=== PATIENT | female | born 1995 | race Caucasian/White ===

== ENCOUNTER 2017-11-01 13:05 | Emergency (ER) | payer BC, OTHER ==
[2017-11-01 14:12] LABS: ABS Basophils 0.1 10^3/ul (0-0.2); ABS Eosinophils 0.2 10^3/ul (0-0.6); ABS Lymphocytes 2.3 10^3/ul (1.0-4.8); ABS Monocytes 0.9 10^3/ul (0-0.8); ABS Neutrophils 3.8 10^3/ul (1.5-7.7); ABS Nucleated RBC 0 10^3/ul; Eosinophil % 2.8 % (0-6); Hematocrit 43 % (35-47); Hemoglobin 14.7 g/dl (12.0-16.0); Lymphocyte % 31.4 % (25-47); Mean Corpuscular HGB Conc 34 g/dl (31-36); Mean Corpuscular Hemoglobin 29 pg (27-31); Mean Corpuscular Volume 85 fL (80-97); Mean Platelet Volume 8.7 um3 (7.4-10.4); Nucleated Red Blood Cells % 0; Platelet Count 263 10^3/ul (150-450); Red Blood Count 5.09 10^6/ul (4.0-5.4); Red Cell Distribution Width 14 % (10.5-15); White Blood Count 7.3 10^3/ul (3.5-10.8)
--- OUTSIDE RECORDS SUMMARY | 2017-11-01 14:26 | XMS REPORT ---
:1995 External Reference #:[id number] Author Organization [facility] Address [address] [address] Phone [phone] Care Team Providers Name Role Phone Yodit Marie MD Care Team Information [employer] Assistant Unavailable Payers Type Date Identification Payment Subscriber Numbers Provider Health Maintenance Effective: Policy Number: BCBS Ppo Neeta Ortiz [facility] ([facility]) 10/13/2017 [id number] PayID: [id number] [address] [address] [place] [address] Workers Compensation Onset: 06/12/2016 Policy Number: State Nikkie Andrew [id number] [facility] Number: [id number] [address] [address] PayID: [id number] [place] [address] Workers Compensation Onset: 11/10/2016 Policy Number: Freddie Ortiz [id number] PayID: [id number] [address] [place] [address] Problems Date Description Provider Status Onset: 02/18/2017 Adjustment disorder with depressed mood Yodit Marie MD Active Onset: 02/18/2017 Migraine with typical aura Yodit Marie MD Active Family History Date Family Member(s) Problem(s) Comments Father Cancer, Colon at age 48 Onset: (age 43 Years) Mother Drug Addiction of overdose in 2011 Social History Type Date Description Comments Education Hightest level completed, 1 year goes to [employer] to study of college criminal justice Marital Status Single Lives With Boyfriend 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 Escitalopram 01/12 Active Tablets 20mg 90tab 1 by mouth G44.52 Federico Marie s every day MD Yodit Aleve Active Capsules 220mg 1 by mouth Unknown /0000 q12 hours as needed for pain Depo-Provera 11/19 Hx Suspension 150mg/ml 1ml 150 mg Im Z11.3 q 3 mos MD Yodit - 08/30 Sumatriptan 09/11 Hx Tablets 50mg 14tab 1 by mouth G43.109 Eriberto Marie s at onset MD Yodit - of 11/19 migraine - November repeat in 2 hours. Clotrimazole/Beta 09/11 Hx Cream 1-0.05% 15gm apply L20.9 Frank methasone twice a MD Yodit Dipropionate - day to 08/30 wrists x weeks. Zofran 06/19 Hx Tablets 4mg 30tab 1 tablet s q6 hours MD Yodit - as needed 08/10 nausea Meloxicam 06/19 Hx Tablets 15mg 30tab 1 tab by M25.511 Frank s mouth MD Yodit - daily for 08/10 pain for 1-2 weeks, then daily as needed for pain Escitalopram 12/27 Hx Tablets 10mg 30tab 1 by mouth G44.52 Federico Marie s every day MD Yodit - 01/12 Depo-Provera Hx Suspension 150mg/ml 150mg Unknown /0000 intramuscu - lar every 11/19 3 Immunizations CPT Code Status Date Vaccine Lot # [id number] Given 10/02/2017 Afluria Or Fluvirin Flu Vac Intramuscular Vital Signs Date Vital Result Comment 10/17/2017 Body Temperature 97.8 F Weight 249.00 lb Heart Rate 80 /min BP Systolic 110 mmHg BP Diastolic 70 mmHg Respiratory Rate 18 /min Height 64.50 inches 5'4.50" 10/17/17 BMI (Body Mass Index) 42.1 kg/m2 08/30/2017 Weight 251.00 lb Heart Rate 80 /min BP Systolic 126 mmHg BP Diastolic 78 mmHg Respiratory Rate 18 /min Height 64.50 inches 5'4.50" 08/10/16 BMI (Body Mass Index) 42.4 kg/m2 05/28/2017 Weight 239.00 lb Heart Rate 76 /min BP Systolic 112 mmHg BP Diastolic 80 mmHg Respiratory Rate 18 /min Height 64.50 inches 5'4.50" 08/10/16 BMI (Body Mass Index) 40.4 kg/m2 02/18/2017 Weight 236.00 lb Heart Rate 76 /min BP Systolic 122 mmHg BP Diastolic 70 mmHg Respiratory Rate 18 /min Height 64.50 inches 5'4.50" 08/10/16 BMI (Body Mass Index) 39.9 kg/m2 11/19/2016 Weight 238.00 lb Heart Rate 80 /min BP Systolic 122 mmHg BP Diastolic 80 mmHg Respiratory Rate 18 /min Height 64.50 inches 5'4.50" 08/10/16 BMI (Body Mass Index) 40.2 kg/m2 11/15/2016 Weight 238.00 lb Heart Rate 62 /min BP Systolic 122 mmHg BP Diastolic 70 mmHg Respiratory Rate 18 /min Height 64.50 inches 5'4.50" 08/10/16 BMI (Body Mass Index) 40.2 kg/m2 10/24/2016 Weight 232.00 lb Heart Rate 72 /min BP Systolic 110 mmHg BP Diastolic 68 mmHg Respiratory Rate 18 /min Height 64.50 inches 5'4.50" 08/10/16 BMI (Body Mass Index) 39.2 kg/m2 09/11/2016 Weight 232.00 lb Heart Rate 72 /min BP Systolic 130 mmHg BP Diastolic 70 mmHg Respiratory Rate 18 /min Height 64.50 inches 5'4.50" 08/10/16 BMI (Body Mass Index) 39.2 kg/m2 08/17/2016 Weight 234.00 lb Heart Rate 72 /min BP Systolic 114 mmHg BP Diastolic 74 mmHg Respiratory Rate 18 /min Height 64.50 inches 5'4.50" 08/10/16 BMI (Body Mass Index) 39.5 kg/m2 08/10/2016 Body Temperature 98.7 F Weight 230.00 lb Heart Rate 84 /min BP Systolic 124 mmHg BP Diastolic 70 mmHg Respiratory Rate 19 /min Height 64.50 inches 5'4.50" 08/10/16 BMI (Body Mass Index) 38.9 kg/m2 07/03/2016 Weight 236.00 lb Heart Rate 76 /min BP Systolic 126 mmHg BP Diastolic 70 mmHg Respiratory Rate 17 /min Height 64.50 inches 5'4.50" 12/28/15 BMI (Body Mass Index) 39.9 kg/m2 06/19/2016 Weight 235.00 lb Heart Rate 76 /min BP Systolic 130 mmHg BP Diastolic 70 mmHg Respiratory Rate 18 /min Height 64.50 inches 5'4.50" 12/28/15 BMI (Body Mass Index) 39.7 kg/m2 04/23/2016 Weight 230.00 lb Heart Rate 76 /min BP Systolic 102 mmHg BP Diastolic 80 mmHg Respiratory Rate 18 /min Height 64.50 inches 5'4.50" 12/28/15 BMI (Body Mass Index) 38.9 kg/m2 02/02/2016 Weight 226.00 lb Heart Rate 80 /min BP Systolic 110 mmHg BP Diastolic 80 mmHg Respiratory Rate 18 /min Height 64.50 inches 5'4.50" 12/28/15 BMI (Body Mass Index) 38.2 kg/m2 01/13/2016 Weight 225.00 lb Heart Rate 80 /min BP Systolic 124 mmHg BP Diastolic 74 mmHg Respiratory Rate 18 /min Height 64.50 inches 5'4.50" 12/28/15 BMI (Body Mass Index) 38.0 kg/m2 12/28/2015 Weight 229.00 lb Heart Rate 76 /min BP Systolic 122 mmHg BP Diastolic 78 mmHg Respiratory Rate 18 /min Height 64.50 inches 5'4.50" 12/28/15 BMI (Body Mass Index) 38.7 kg/m2 04/07/2013 Weight 200.00 lb Heart Rate 82 /min BP Systolic 118 mmHg BP Diastolic 80 mmHg Respiratory Rate 18 /min 07/25/2012 Weight 189.00 lb Heart Rate 80 /min BP Systolic 128 mmHg BP Diastolic 82 mmHg Respiratory Rate 18 /min Height 64 inches 5'4"/Done On 02/201206/13/2012 Body Temperature 98.9 F Weight 187.00 lb Heart Rate 80 /min BP Systolic 98 mmHg BP Diastolic 70 mmHg Respiratory Rate 18 /min 06/02/2012 Weight 189.00 lb Heart Rate 84 /min BP Systolic 130 mmHg BP Diastolic 80 mmHg Respiratory Rate 17 /min 05/23/2012 Body Temperature 98.6 F Weight 188.00 lb Heart Rate 82 /min BP Systolic 110 mmHg BP Diastolic 70 mmHg Respiratory Rate 17 /min 02/15/2012 Body Temperature 20.0 F Weight 185.00 lb Heart Rate 84 /min BP Systolic 114 mmHg BP Diastolic 70 mmHg Height 64 inches 5'4" 02/15/12 Results Test Date Test Result H/L Range Note Laboratory test finding 10/17/2017 TSH <pending> Esr <pending> CRP (C-Reactive) <pending> Laboratory test finding 01/01/2017 Urine HCG (Qualitative) NEGATIVE Negative 1, 2 GC/Chlamydia By Dna 11/19/2016 Chlamydia by Dna Probe NEGATIVE Negative Probe GC by Dna Probe NEGATIVE Negative Type And Screen 06/12/2016 Patient Blood Type A POS 3 Antibody Screen Negative Negative 3 CBS W/Automated Diff 06/12/2016 White Blood Count 9.5 K/uL 3.1-10.7 3 Red Blood Count 5.14 M/uL 3.90-5.40 3 Hemoglobin 14.8 gm/dL 11.6-15.8 3 Hematocrit 44.2 % 36.0-46.1 3 Mean Cell Volume 86.0 fl 80.9-99.0 3 Mean Corpuscular HGB 28.8 pg 25.9-32.7 3 Mean Corpuscular HGB Conc 33.5 g/dL 30.8-34.3 3 Platelet Count 299 K/uL 155-360 3 Red Cell Distri Width SD 42.4 fl 3-47 3 Red Cell Distri Width %CV 13.8 % 11.7-14.4 3 Mean Platelet Volume 10.9 fL 8.9-12.4 3 Neut% 62.1 % 40.4-72.8 3 Lymph % 25.5 % 17.0-46.1 3 [place] % 9.8 % 4.3-13.2 3 Eo% 2.1 % 0.0-6.6 3 Bas% 0.5 % 0.0-1.1 3 Neut# 5.92 K/uL 1.8-7.0 3 Lymph # 2.43 K/uL 1.8-7.0 3 [place] # 0.93 K/uL High 0.3-0.9 3 Eos # 0.20 K/uL 0.0-0.5 3 Baso # 0.05 K/uL 0.0-0.1 3 Laboratory test finding 06/12/2016 Slide Review (SEE NOTE) 3, 4 Protime 06/12/2016 Protime 13.1 seconds 12.0-14.4 3 Inr 1.0 0.9-1.1 3, 5 Laboratory test finding 06/12/2016 Lipase 110 U/L 73-393 3 HCG,Serum (Qualitative) NEGATIVE (Negative) 3 Comprehensive Metabolic Panel 06/12/2016 Glucose 91 mg/dL 74-106 3 BUN 12 mg/dL 7-18 3 Creatinine 1.0 mg/dL 0.6-1.3 3 Glom Filtration Rate, Estimate >60 mL/min >60 3 If >60 mL/min >60 3, 6 BUN/Creat 12.0 ratio 3 Sodium 142 mmol/L 136-145 3 Potassium 3.6 mmol/L 3.5-5.1 3 Chloride 111 mmol/L High 98-107 3 Carbon Dioxide 21 mmol/L 21-32 3 Anion Gap 10 mEq/L 8-16 3 Calcium 8.7 mg/dL 8.5-10.1 3 Total Protein 7.4 g/dL 6.4-8.2 3 Albumin 3.7 g/dL 3.4-5.0 3 Globulin 3.7 g/dL 1.9-4.3 3 Alb/Glob 1.0 ratio 3 Bilirubin,Total 0.9 mg/dL 0.2-1.0 3 Sgot/Ast 30 U/L 15-37 3 SGPT/Alt 34 U/L 12-78 3 Alkaline Phosphatase 83 U/L 45-117 3 Urine Culture 06/12/2016 Urine Culture URETHRAL WENDY 3 Quantity 10,000 - 50,000 <SEE NOTE> 3, 7 Urinalysis With Microscopic 06/12/2016 Urine Color DK YELLOW Yellow 3 Urine Clarity SL CLOUDY Clear 3 Urine Glucose - Dipstick NEGATIVE mg/dL Negative 3 Urine Bilirubin - Dipstick NEGATIVE Negative 3 Urine Ketone NEGATIVE mg/dL Negative 3 Urine Specific [place] 1.025 1.010-1.030 3 Urine Blood LARGE Negative 3 Urine PH 5.0 Low 6.5-7.5 3 Urine Protein - Dipstick NEGATIVE mg/dL Negative 3 Urine Urobilinogen - Dipstick 0.2 E.U./dL 0.2-1.0 3 Urine Nitrite - Dipstick NEGATIVE Negative 3 Urine Leuk Esterase NEGATIVE Negative 3 Urine RBC 2-5 rbc/hpf 0-2 3 Urine WBC 2-5 wbc/hpf 0-7 3 Urine Epithelial Cells MANY /lpf None Seen 3, 8 Urine Bacteria MODERATE None Seen 3 Source: URINE, CLEAN CAT <SEE NOTE> 3, 9 Comprehensive Metabolic (CMP) 12/28/2015 Sodium 139 mmol/L 134-142 10 Potassium 3.9 mmol/L 3.5-5.2 10 Chloride 109 mmol/L 97-109 10 Carbon Dioxide 23 Results verif <SEE NOTE> mmol/L Low 24-34 10, 11 Glucose 93 mg/dL 70-105 10 BUN 14 mg/dL 6-26 10 Creatinine 1.0 mg/dL 0.5-1.4 10 Calcium 9.4 mg/dL 8.5-10.2 10 Total Protein 6.9 g/dL 6.0-8.0 10 Albumin 4.2 g/dL 3.6-4.9 10 Globulin 2.7 g/dL 2.0-3.5 10 A/G Ratio 1.6 Ratio 1.0-2.2 10 Total Bilirubin 0.6 mg/dL 0.1-1.3 10 Alkaline Phosphatase 61 U/L 24-140 10 Alt 29 U/L 3-42 10 Ast 19 U/L 8-42 10 Anion Gap 11 mmol/L 6-14 10 Sabina Egfr >60 >60 10, 12 Non Sabina Egfr >60 >60 10, 13 Laboratory test finding 12/28/2015 TSH 2.61 uIU/mL 0.35-4.94 10 CBC With Auto Diff 12/28/2015 WBC 8.6 K/uL 4.1-11.0 10 RBC 5.06 M/uL 4.00-5.40 10 Hemoglobin 14.4 gm/dL 12.0-16.0 10 Hematocrit 43.2 % 36.0-47.0 10 MCV 85.4 fL 80.0-97.0 10 MCH 28.4 pg 27.0-32.0 10 MCHC 33.2 g/dL 32.0-36.0 10 RDW 13.6 % 11.5-14.5 10 PLT Count 316 K/ul 140-400 10 Neutrophil 62.4 % 35.0-75.0 10 Lymphocyte 26.4 % 16.0-52.0 10 Monocyte 8.1 % 2.0-10.0 10 Eosinophil 2.3 % 0.0-5.0 10 Basophil 0.8 % 0.0-4.0 10 Abs Neutrophils 5.3 K/uL 2.1-8.0 10 Abs Lymphocytes 2.3 K/uL 0.8-5.5 10 Abs Monocytes 0.7 K/uL 0.1-1.0 10 Abs Eosinophils 0.2 K/uL 0.0-0.5 10 Abs Basophils 0.1 K/uL 0.0-0.3 10 Laboratory test finding 07/25/2012 Alternaria Tenuis <0.08 Class 0 kU/L Apergillis Fumigatus <0.08 Class 0 kU/L Boris,White <0.08 Class 0 kU/L Bahia Grass <0.08 Class 0 kU/L Beef <0.08 Class 0 kU/L B[place] Grass <0.08 Class 0 kU/L Birch,White <0.08 Class 0 kU/L Bluegrass,[place] <0.08 Class 0 kU/L Cat Hair/Dander <0.08 Class 0 kU/L Norman,[place]ountain <0.08 Class 0 kU/L Chocolate/[place] F052 <0.08 Class 0 kU/L Cladosporium Herbarum <0.08 Class 0 kU/L Cockroach,Haitian <0.08 Class 0 kU/L Inchelium <0.08 Class 0 kU/L D Farinae Mite 5.53 ClassIVkU/L High D Pteronyssinus 2.80 ClassIVkU/L High 14 Dog Epithelia <0.08 Class 0 kU/L Egg (Whole) <0.08 Class 0 kU/L Elm,Haitian (White) <0.08 Class 0 kU/L Fish/Shell Mix <0.08 Class 0 kU/L Hazelnut Tree <0.08 Class 0 kU/L Davis,White <0.08 Class 0 kU/L Maple (Broadbent) <0.08 Class 0 kU/L Milk (Cow) <0.08 Class 0 kU/L Mucor Racemosus <0.08 Class 0 kU/L Mugwort <0.08 Class 0 kU/L [place],White <0.08 Class 0 kU/L Nettle <0.08 Class 0 kU/L [place],White <0.08 Class 0 kU/L Peanut <0.08 Class 0 kU/L Penicillium Not <0.08 Class 0 kU/L Pigweed,Rough <0.08 Class 0 kU/L Plantain,Uzbek <0.08 Class 0 kU/L Pork <0.08 Class 0 kU/L Ragweed,Short/ <0.08 Class 0 kU/L Sheep Chalco (DO <0.08 Class 0 kU/L Soybean <0.08 Class 0 kU/L Stemphylium Bot <0.08 Class 0 kU/L Wheat <0.08 Class 0 kU/L mRast Class (Text Only) See Note 15 1 11:30 12/27/16 [id number] 2 FIRST MORNING SPECIMENS GENERALLY CONTAIN THE HIGHEST CONCENTRATION OF HCG AND ARE RECOMMENDED FOR EARLY DETECTION OF . Method: [employer] QuickVue One-Step Immunoassay 3 2X MVA ROLLOVER. 4 Instrument flagged sample for slide review. Less than 10% Bands seen, no other immature WBC's seen. RBC morphology essentially normal. Platelet estimate=NORMAL 5 THERAPEUTIC INR RANGE: 2.0 - 3.0 DVT, Pulmonary embolus, prophylaxis against venous thrombosis or systemic embolization in high risk patients. 2.5 - 3.5 Mechanical heart valves 6 Note: Persistent reduction for 3 months or more in an eGFR <60 mL/min/1.73 m2 defines CKD. Patients with eGFR values >/=60 mL/min/1.73 m2 may also have CKD if evidence of persistent proteinuria is present. The original MDRD equation for estimated GFR is not valid for patients less than 18 years of age. Additional information may be found at www.kdoqi.org. 7 10,000 - 50,000 CFU/mL 8 POSSIBLE UROGENITAL CONTAMINATION. 9 URINE, CLEAN CATCH 10 today 11 23 Results verified by repeat analysis 12 Concerning GFR Guidelines for Americans: Normal function or mild renal disease, if clinically at risk: >/=60 mL/min Moderately decreased: 30-59 Severely decreased: 15-29 Renal failure: <15 13 Concerning GFR Guidelines: Normal function or mild renal disease, if clinically at risk: >/=60 mL/min Moderately decreased: 30-59 Severely decreased: 15-29 Renal failure: <15 Glomerular Filtration Rate (GFR) is estimated based on the MDRD equation, which assumes a steady state for creatinine as recommended by the National Kidney Disease Education Program in conjunction with the National Institutes of Health and the National Kidney Foundation. Clinical conditions in which it may be necessary to measure GFR by using clearance methods include extremes of age and body size, severe malnutrition or obesity, diseases of skeletal muscle, paraplegia or quadriplegia, vegetarian diet, rapidly changing kidney function, and calculation of the dose of potentially toxic drugs that are excreted by the kidneys. 14 Test(s) 948279-E921-HgH Hazelnut Tree; 213009- V117-AoF Davis, White; 742703-N702-UaB White [place]; 709135-M717-LxY Pigweed, Rough; 981101- W018- IgE Sheep Chalco(Dock); 657770-R772-YyH Nettle; 459011-D289-YzH Beef; 444699-RA62 -IgE Fish/Shell Mix; 566655-V155-VjA Egg, Whole; 645766-Z159-DiK Chocolate/[place] were developed and had performance characteristics determined by [employer]. These tests have not been cleared or approved by the U.S. Food and Drug Administration. The FDA has determined that such clearance or approval is not necessary. These tests are used for clinical purposes. These should not be regarded as investigational or for research. Performed at: [address] [id number] [employer] Machine Operator: Srinivas Hooks MD, Phone: [phone] Levels of Specific IgE Class Description of Class -- ----- <0.08 0 Negative 0.08 - 0.15 I 0.16 - 0.50 II Increasing 0.51 - 2.50 III levels 2.51 - 12.50 IV of 12.51 - 62.50 V Specific IgE 62.51 - >100.00 Antibody Procedures Date CPT Code Description Status 09/03/2017 38763 Admin Of Inj (Therapeutic Phrophylactic Or Diagnostic Completed Subq Inj 08/30/2017 77315 Measure Blood Oxygen Level Single Determination Completed 05/14/2017 12109 Admin Of Inj (Therapeutic Phrophylactic Or Diagnostic Completed Subq Inj 05/13/2017 46262 Admin Of Inj (Therapeutic Phrophylactic Or Diagnostic Completed Subq Inj 02/14/2017 33691 Admin Of Inj (Therapeutic Phrophylactic Or Diagnostic Completed Subq Inj 11/15/2016 92779 X-Ray Foot Complete Completed Encounters Type Date Location Provider CPT E/M Dx Office Visit 08/30/2017 3:45p [facility] [place] [address] G43.109 F43.21 N91.1 Z30.42 Z32.02 Office Visit 05/28/2017 3:45p [facility] [place] [address] G43.109 F43.21 Office Visit 02/18/2017 3:00p [facility] [place] [address] G43.109 F43.21 Office Visit 11/19/2016 3:30p [facility] [place] [address] G43.109 F43.21 Z11.3 Office Visit 11/15/2016 1:00p [facility] [place] [address] M79.671 M79.671 Office Visit 10/24/2016 3:15p [facility] [place] [address] M25.511 Office Visit 09/11/2016 3:30p [facility] [place] [address] G43.109 L20.9 Office Visit 08/17/2016 4:00p [facility] [place] [address] F43.21 G44.52 Office Visit 08/10/2016 10:15a [facility] [place] [address] R05 Office Visit 04/23/2016 9:45a [facility] [place] [address] F43.21 G44.52 J06.9 Office Visit 02/02/2016 10:15a [facility] [place] [address] F43.21 G44.52 Office Visit 01/13/2016 10:00a [facility] [place] [address] F43.21 G44.52 Office Visit 12/28/2015 9:30a [facility] [place] [address] G44.52 Z80.0 F43.21 Plan of Care Future Appointment(s):11/21/2017 10:30 am - Schedule, Nurses at [facility]12/12/2017 9 :45 am - Yodit Marie MD at [facility]10/17/2017 - Yodit Marie MDR19.7 Diarrhea , unspecifiedNew Labs:Stool PanelComments:Diarrhea - diarrhea persists more than 1 week. check labs and stool studies. explained no antibiotics until we identify the causative agent as treating empirically with antibiotics can result is worsening of symptoms and serious complications. ok to use pepto - no immodium. if patient becomes more ill go to er as this can result in dehydration - drink lots of fluids.Z68.41 Body mass index (BMI) 40.0-44.9, adultComments:the BMI is the ratio between height and weight. goal for a person under age 65 is between 18.5 and25. You are overweight. Work on healthy lifestyle, with regular exercise (20 min daily will help) and eat a healthy diet. formal diet plans work best.
[2017-11-01 14:30] LABS: EGFR Non-African American 75.6 (>60)
[2017-11-01 15:09] VITALS: BP 133/88
--- NOTE | 2017-11-04 07:32 | ED ---
Nausea/Vomiting/Diarrhea HPI - HPI Summary HPI Summary: Patient is a 22-year-old female presenting to the ED with the chief complaint of nausea and diarrhea which has been present 3 weeks. She has had some relief and episodes have been intermittent. Denies any vomiting, but states she has been feeling as if she were about to vomit. Denies any melena. Diarrhea is loose, not watery, non-malodorous or have a specific color to it. Denies any fevers, sweats, chills. She denies any camping or travel. She has never these episodes before. She has never been diagnosed with a colitis or any other gastrointestinal pathology. She is been feeling otherwise well and has been going to work and school regularly. - History of Current Complaint Chief Complaint: EDAbdPain Stated Complaint: ABD PAIN Time Seen by Provider: 11/01/17 13:58 Hx Obtained From: Patient Hx Last Menstrual Period: 2 + years ago ?: No Onset/Duration: Sudden Onset Timing: Constant Severity Initially: Mild Severity Currently: Mild Pain Intensity: 3 Pain Scale Used: 0-10 Numeric Location: Diffuse Nausea/Vomiting Presence: None Nausea/Vomiting Duration: 0-12 hours Diarrhea Presence: Yes Diarrhea Frequency: Every 3-4 hours Diarrhea Duration: 0-12 hours - Risk Factors Influenza Risk Factors: Negative Surgical Obstruction Risk Factor(s): Negative - Allergies/Home Medications Allergies/Adverse Reactions: Allergies Allergy/AdvReac Type Severity Reaction Status Date / Time egg Allergy Rash Verified 11/01/17 13:13 Home Medications: Home Medications Escitalopram (NF) [Lexapro 20 mg (NF)] 20 mg PO DAILY 11/01/17 [History Confirmed 11/01/17] SUMAtriptan TAB* [Imitrex TAB*] 50 mg PO DAILY PRN 11/01/17 [History Confirmed 11/01/17] PMH/Surg Hx/FS Hx/Imm Hx Previously Healthy: Yes - Surgical History Surgery Procedure, Year, and Place: 01/31/17 RIGHT SHOULDER - Immunization History Hx Pertussis Vaccination: No Immunizations Up to Date: Unable to Obtain/Confirm Infectious Disease History: No Infectious Disease History: Denies: Traveled Outside the [place] in Last 30 Days - Family History Known Family History: Positive: None - Social History Occupation: Unemployed Lives: With Family Alcohol Use: None Hx Substance Use: No Substance Use Type: Reports: None Hx Tobacco Use: No Smoking Status (MU): Never Smoked Tobacco Review of Systems Constitutional: Negative Negative: Fever, Chills, Fatigue, Skin Diaphoresis Negative: Photophobia, Blurred Vision Cardiovascular: Negative Respiratory: Negative Positive: Diarrhea, Nausea. Negative: Abdominal Pain, Vomiting Genitourinary: Negative Positive: no symptoms reported, see HPI Skin: Negative Psychological: Normal All Other Systems Reviewed And Are Negative: Yes Physical Exam Triage Information Reviewed: Yes Vital Signs On Initial Exam: Initial Vitals Temp Pulse Resp BP Pulse Ox 97.0 F 81 16 147/79 99 11/01/17 13:13 11/01/17 13:13 11/01/17 13:13 11/01/17 13:13 11/01/17 13:13 Vital Signs Reviewed: Yes Appearance: Positive: Well-Appearing, Well-Nourished Skin: Positive: Warm, Skin Color Reflects Adequate Perfusion Head/Face: Positive: Normal Head/Face Inspection Eyes: Positive: EOMI, IVONE, Conjunctiva Clear Neck: Positive: Supple Respiratory/Lung Sounds: Positive: Clear to Auscultation, Breath Sounds Present Cardiovascular: Positive: RRR, Pulses are Symmetrical in both Upper and Lower Extremities Abdomen Description: Positive: Nontender, No Organomegaly, Bruit. Negative: CVA Tenderness (R), CVA Tenderness (L), McBurney's Point Tenderness Musculoskeletal: Positive: Normal, Strength/ROM Intact Neurological: Positive: Sensory/Motor Intact, Alert, Oriented to Person Place, Time, Speech Normal Psychiatric: Positive: Normal, Affect/Mood Appropriate AVPU Assessment: Alert Diagnostics - Vital Signs Vital Signs Temp Pulse Resp BP Pulse Ox 11/01/17 15:08 97.0 F 68 16 133/88 98 11/01/17 14:21 68 97 11/01/17 14:17 79 137/104 99 11/01/17 13:13 97.0 F 81 16 147/79 99 - Laboratory Lab Results: Lab Results 11/01/17 11/01/17 11/01/17 Range/Units 14:05 14:05 14:05 WBC 7.3 (3.5-10.8) 10^3/ul RBC 5.09 (4.0-5.4) 10^6/ul Hgb 14.7 (12.0-16.0) g/dl Hct 43 (35-47) % MCV 85 (80-97) fL MCH 29 (27-31) pg MCHC 34 (31-36) g/dl RDW 14 (10.5-15) % Plt Count 263 (150-450) 10^3/ul MPV 8.7 (7.4-10.4) um3 Neut % (Auto) 51.8 (38-83) % Lymph % (Auto) 31.4 (25-47) % Ramsey % (Auto) 13.0 H (0-7) % Eos % (Auto) 2.8 (0-6) % Baso % (Auto) 1.0 (0-2) % Absolute Neuts (auto) 3.8 (1.5-7.7) 10^3/ul Absolute Lymphs (auto) 2.3 (1.0-4.8) 10^3/ul Absolute Monos (auto) 0.9 H (0-0.8) 10^3/ul Absolute Eos (auto) 0.2 (0-0.6) 10^3/ul Absolute Basos (auto) 0.1 (0-0.2) 10^3/ul Absolute Nucleated RBC 0 10^3/ul Nucleated RBC % 0 Sodium 139 (139-145) mmol/L Potassium 3.8 (3.5-5.0) mmol/L Chloride 107 (101-111) mmol/L Carbon Dioxide 26 (22-32) mmol/L Anion Gap 6 (2-11) mmol/L BUN 17 (6-24) mg/dL Creatinine 0.92 (0.51-0.95) mg/dL Est GFR ( Amer) 97.3 (>60) Est GFR (Non-Af Amer) 75.6 (>60) BUN/Creatinine Ratio 18.5 (8-20) Glucose 77 (70-100) mg/dL Lactic Acid 0.7 (0.5-2.0) mmol/L Calcium 9.4 (8.6-10.3) mg/dL Magnesium 2.0 (1.9-2.7) mg/dL Total Bilirubin 0.50 (0.2-1.0) mg/dL AST 18 (13-39) U/L ALT 16 (7-52) U/L Alkaline Phosphatase 77 (34-104) U/L C-Reactive Protein 3.14 (< 5.00) mg/L Total Protein 7.2 (6.4-8.9) g/dL Albumin 4.4 (3.2-5.2) g/dL Globulin 2.8 (2-4) g/dL Albumin/Globulin Ratio 1.6 (1-3) Lipase 19 (11.0-82.0) U/L Beta HCG, Quant < 0.60 mIU/mL Result Diagrams: 11/01/17 14:05 11/01/17 14:05 Lab Statement: Any lab studies that have been ordered have been reviewed, and results considered in the medical decision making process. Naus/Vom/Diarrhea Course/Dx - Course Course Of Treatment: Patient is evaluated for nausea and diarrhea. Diarrhea is non-malodorous and without color. Zofran with effect. She was unable to give a stool sample while in the ED. Labs obtained and are unremarkable. I have advised her to follow-up with her PCP. Since she is improving she will be discharged home at this time and understands return precautions. She continues to deny any abdominal pain. - Differential Dx/Diagnosis Differential Diagnoses - Female: Dehydration Provider Diagnoses: Diarrhea Is Visit Related: No Condition At Discharge: Stable Discharge - Sign-Out/Discharge Documenting (check all that apply): Discharge - Discharge Plan Condition: Stable Disposition: HOME Prescriptions: Ondansetron ODT TAB* [Zofran 4 MG Odt TAB*] 4 mg PO Q6H PRN #12 tab.odt PRN Reason: Nausea Patient Education Materials: Dehydration (ED), Acute Diarrhea (ED) Referrals: Yodit Marie MD [Primary Care Provider] - Kong Naranjo MD [Medical Doctor] - Additional Instructions: Please follow-up with Dr. Naranjo Do not use any antidiarrheals Follow back up with your PCP as well If he develop any malodorous, or range or yellow stool, return to the ED Drink plenty of fluids and include Gatorade - Billing Disposition and Condition Condition: STABLE Disposition: HOME
== END 2017-11-01 15:08 | disposition home or self-care (01) ==
LOC: ED 13:05
DX: R11.0 Nausea (principal); R19.7 Diarrhea, unspecified
CPT/HCPCS: 36415; 80053; 83605; 83690; 83735; 84702; 85025; 86140; 99282

== ENCOUNTER 2018-01-18 19:45 | Emergency (ER) | payer SELFPAY ==
[2018-01-18 19:53] VITALS: BP 126/69
--- NOTE | 2018-01-18 20:06 | UC ---
Cardiac HPI - HPI Summary HPI Summary: Woke up this morning with chest pain. Pressure, heaviness with shortness of breath. No nausea/ diaphoresis. Worse with deep breaths or bending over. - History of Current Complaint Chief Complaint: UCChestPain Stated Complaint: CHEST PAIN,SOB Hx Obtained From: Patient Hx Last Menstrual Period: On depo inj Onset/Duration: Sudden Onset, Lasting Hours - 12, Worse Since - onset Timing: Constant Initial Severity: Moderate Current Severity: Severe Pain Intensity: 7 Chest Pain Location: Mid Sternal Character: Heaviness Aggravating Factor(s): Movement, Deep Breaths Alleviating Factor(s): Rest, Position Associated Signs & Symptoms: Positive: Chest Pain, SOB - Risk Factors Pulmonary Embolism Risk Factors: Negative Cardiac Risk Factors: Negative - Allergy/Home Medications Allergies/Adverse Reactions: Allergies Allergy/AdvReac Type Severity Reaction Status Date / Time egg Allergy Rash Verified 01/18/18 19:47 PMH/Surg Hx/FS Hx/Imm Hx Previously Healthy: Yes - Surgical History Surgical History: Yes Surgery Procedure, Year, and Place: 01/31/17 RIGHT SHOULDER - Family History Known Family History: Positive: Hypertension, Diabetes Negative: Cardiac Disease - Social History Occupation: Unemployed Lives: Alone Alcohol Use: Occasionally Substance Use Type: None Smoking Status (MU): Never Smoked Tobacco - Immunization History Most Recent Influenza Vaccination: Not the Season Review of Systems Respiratory: Shortness Of Breath Cardiovascular: Chest Pain Is Patient Immunocompromised?: No All Other Systems Reviewed And Are Negative: Yes Physical Exam Triage Information Reviewed: Yes Appearance: Well-Appearing, Pain Distress - some splinting of respirations., Obese Vital Signs: Initial Vital Signs Temp 98.7 F 01/18/18 19:46 Pulse 108 01/18/18 19:46 Resp 18 01/18/18 19:46 BP 126/69 01/18/18 19:46 Pulse Ox 100 01/18/18 19:46 Vital Signs Reviewed: Yes Eyes: Positive: Conjunctiva Clear ENT: Positive: Pharynx normal, Nasal congestion - with allergic changes., TMs normal Dental Exam: Normal Neck: Positive: Tenderness @ - right submandibular/ submental region. Respiratory: Positive: Lungs clear, Wheezing - expiratory with coughing Cardiovascular Exam: Normal Abdomen Description: Negative: Nontender - mild left lower quadrant tenderness, Hepatomegaly, McBurney's Point Tenderness, Peritoneal Signs Musculoskeletal Exam: Normal, Other - Negative homans. Musculoskeletal: Positive: No Edema Neurological Exam: Normal Psychological Exam: Normal - Maybe slightly anxious Skin Exam: Normal Diagnostics - Radiology No standard instances Xray Interpretation: No Acute Changes Radiology Interpretation Completed By: ED Physician, Radiologist - Differential Diagnoses - Chest Pain Differential Diagnosis/HQI/PQRI: Acute [place], Angina, Chest Wall, Lower Respiratory Infection, Pulmonary Embolism - Clinical Impression Provider Diagnoses: Costochondritis. Chest wall pain. Discharge - Sign-Out/Discharge Documenting (check all that apply): Discharge/Admit/Transfer - Discharge Plan Condition: Stable Disposition: HOME Prescriptions: Naproxen [Naproxen 500 mg tab] 500 mg PO BID PRN #60 tablet.dr PRN Reason: Pain - Chest predniSONE TAB* [Deltasone 20 MG TAB*] 20 mg PO DAILY #18 tab Patient Education Materials: Costochondritis (ED), Prednisone (By mouth), Naproxen (By mouth) Referrals: Yodit Marie MD [Primary Care Provider] - Additional Instructions: If the pain is a lot worse, go to the ER. - Billing Disposition and Condition Condition: STABLE Disposition: Home
[2018-01-18] MEDS ORDERED: Ketorolac INJ* 60 MG/2 ML VIAL IM ONE (20:08)
[2018-01-18] MEDS ORDERED: Albuterol 2.5 MG/3 ML NEB.SOL* (0.083%) INH ONE (20:09)
--- NOTE | 2018-01-18 20:32 | RAD ---
INDICATION: Chest wall pain and shortness of breath. COMPARISON: Comparison is made with a prior study from November 02, 2015. TECHNIQUE: Dual-energy PA and lateral views of the chest were obtained. FINDINGS: The heart is within normal limits in size. Mediastinal and hilar contours appear within normal limits. The lungs are underinflated and clear. No pleural effusion or pneumothorax is seen. IMPRESSION: NO EVIDENCE FOR ACTIVE CARDIOPULMONARY DISEASE.
[2018-01-18] MEDS ORDERED: predniSONE TAB* 20 MG PO ONE (20:49)
--- OUTSIDE RECORDS SUMMARY | 2018-01-18 21:03 | XMS REPORT ---
:1995 External Reference #:[id number] Author Organization [facility] Address [address], [address] [place] [address] Phone [phone] Care Team Providers Name Role Phone Lily Seo FNP Care Team Information Nurse Coordinator Unavailable Lily Seo FNP Primary Care Physician Unavailable Payers Type Date Identification Numbers Payment Provider Subscriber Commercial Policy Number: [id number] Pk Ortiz PayID: [id number] [address] [address] [place] [address] Workers Compensation Onset: 2017 Policy Number: Freddie Ortiz [id number] PayID: [id number] [address] [place] [address] Workers Compensation Onset: 2016 Policy Number: State Nikkie Andrew [id number] Diana Group Name: Ext [id number] [address] PayID: [id number] [place] [address] Workers Compensation Onset: 2017 Policy Number: Freddie Ortiz [id number] Group Name: [address] PayID: [id number] [place] [address] Problems Date Description Provider Status Onset: 12/12/2016 Shoulder joint pain Davin Woo M.D. Active Onset: 01/10/2017 Disorder of shoulder ADAM Ford Active Onset: 04/03/2017 Sprain of shoulder ADAM Ford Active Onset: 07/04/2017 Disorder of bursa of shoulder region ADAM Ford Active Family History Date Family Member(s) Problem(s) Comments Father due to Colon Cancer () Father Colon Cancer Mother due to Diabetes () Mother due to Hypertension () Social History Type Date Description Comments Marital Status Single Lives With Boyfriend Home Environment Lives With Boyfriend Occupation Currently Working [employer] Work Status Currently Working Cigarette Use Never Smoked Cigarettes Smokeless Tobacco Never Used Smokeless Tobacco ETOH Use Currently consumes alcohol socially 1/month Smoking Patient has never smoked Recreational Drug Use Denies Drug Use Daily Caffeine Consumes on average 3 cups of regular coffee per day Daily Caffeine Consumes on average 24oz of soda per day Allergies, Adverse Reactions, Alerts Date Description Reaction Status Severity Comments 11/07/2016 Eggs active All egg products Medications Medication Date Status Form Strength Qnty SIG Indications Ordering Provider Citroma 11/26 Active Solution 1.745GM/3 296ml drink 1 R19. 0ML bottle at [facility] 12pMD jeremy (noon)the day before the procedure Dulcolax 11/[address] 5mg 4tabs 4 tablets R1. taken a [facility] Eduardo 8pm MD anoop day before the procedure Golytely 11/26 Active Solution 236gm 4000m drink half R103.21 Rec l the [facility] evening MD before and half the morning of the procedure (1 cup every 10') Medroxyprogestero Active Suspension 150mg/ml inject Unknown ne Acetate /0000 150mg intramuscu larly every 3 months Sumatriptan Active Tablets 50mg Take 1 Unknown Succinate /0000 Tablet By Mouth AT Onset Of Migraine May Repeat In 2 Hours Escitalopram Active Tablets 20mg Take One Unknown Oxalate /0000 Tablet By Mouth Every Day Aleve Active Capsules 220mg 1 tab by Unknown /0000 mouth as needed Valium 06/14 Hx Tablets 5mg 2tabs take 1 tab 45 min Amna, prior to M.D. exam start and may take a 2nd tablet if needed Tramadol HCL 06/13 Hx Tablets 50mg 30tab 1 by mouth s every 6 Amna, hour as M.D. needed pain Oxycodone HCL 12/26 Hx Tablets 10mg 40tab 1 by mouth s every 4-6 Amna, - hour as M.D. 01/30 postop pain Valium 11/27 Hx Tablets 5mg 2tabs take 1 tab 45 min Amna, - prior to M.D. 12/12 exam start and may take a 2nd tablet if needed Escitalopram Hx Tablets 20mg Take One Unknown Oxalate /0000 Tablet By - Mouth 01/30 Naproxen Sodium Hx Capsules 220mg 2 po bid Unknown /0000 - 12/12 Clotrimazole/Beta Hx Cream 1-0.05% Apply Unknown methasone /0000 Twice A Dipropionate - Day To 12/26 Wrists 2 Weeks Meloxicam Hx Tablets 15mg Take One Unknown /0000 Tablet By - Mouth 12/12 For Pain For 1 2 Weeks Then Once Da Hydrocodone-Aceta Hx Tablets 5-325mg Take One Unknown minophen /0000 Tablet By - Mouth 12/12 Every 6 Hours as Needed For Pain Maximum Ibuprofen Hx Tablets 600mg Take One Unknown /0000 Tablet By - Mouth 12/12 Times A Day Ondansetron HCL Hx Tablets 4mg Take One Unknown /0000 Tablet By - Mouth 12/12 Every Hours as Needed For Nausea Escitalopram Hx Tablets 10mg Take One Unknown Oxalate /0000 Tablet By - Mouth 12/12 Aleve / Hx Capsules 220mg 1 when Unknown /0000 needed - 12/26 Naproxen Sodium 0000 Hx Capsules 220mg 1 when Unknown /0000 needed - 01/30 Medications Administered in Office Medication Date Status Form Strength Qnty SIG Indications Ordering Provider Depomedrol 80 Administered Injection Berna mg 017 ADAM Dinero Vital Signs Date Vital Result Comment 11/26/2017 BP Systolic Sitting Right Arm 136 mmHg BP Diastolic Sitting Right Arm 88 mmHg Heart Rate 120 /min Respiratory Rate 16 /min Height 65 inches 5'5" Weight 243.00 lb BMI (Body Mass Index) 40.4 kg/m2 BSA (Body Surface Area) 2.15 m2 Tell body weight in kilograms 57 09/11/2017 BP Systolic Sitting Left Arm 120 mmHg BP Diastolic Sitting Left Arm 79 mmHg Body Temperature 98.4 F Heart Rate 74 /min Respiratory Rate 19 /min Height 65 inches 5'5" Weight 248.00 lb BMI (Body Mass Index) 41.3 kg/m2 BSA (Body Surface Area) 2.17 m2 Tell body weight in kilograms 57 08/12/2017 BP Systolic Sitting Left Arm 117 mmHg BP Diastolic Sitting Left Arm 85 mmHg Heart Rate 79 /min Height 65 inches 5'5" Weight 248.00 lb BMI (Body Mass Index) 41.3 kg/m2 BSA (Body Surface Area) 2.17 m2 Tell body weight in kilograms 57 07/26/2017 BP Systolic Sitting Left Arm 112 mmHg BP Diastolic Sitting Left Arm 77 mmHg Body Temperature 98.7 F Heart Rate 89 /min Respiratory Rate 19 /min Height 65 inches 5'5" Weight 245.00 lb BMI (Body Mass Index) 40.8 kg/m2 BSA (Body Surface Area) 2.16 m2 Tell body weight in kilograms 57 07/04/2017 BP Systolic Sitting Left Arm 117 mmHg BP Diastolic Sitting Left Arm 76 mmHg Heart Rate 83 /min Height 65 inches 5'5" Weight 244.00 lb BMI (Body Mass Index) 40.6 kg/m2 BSA (Body Surface Area) 2.15 m2 Tell body weight in kilograms 57 06/05/2017 BP Systolic 123 mmHg BP Diastolic 82 mmHg Body Temperature 98.3 F Heart Rate 86 /min Respiratory Rate 16 /min Height 65 inches 5'5" Weight 242.00 lb BMI (Body Mass Index) 40.3 kg/m2 BSA (Body Surface Area) 2.15 m2 Tell body weight in kilograms 57 12/26/2016 BP Systolic 117 mmHg BP Diastolic 78 mmHg Heart Rate 76 /min Height 64.5 inches 5'4.50" Weight 229.00 lb BMI (Body Mass Index) 38.7 kg/m2 BSA (Body Surface Area) 2.08 m2 Tell body weight in kilograms 56 11/07/2016 BP Systolic 126 mmHg BP Diastolic 72 mmHg Heart Rate 68 /min Weight 237.00 lb Results Test Date Test Result H/L Range Note Laboratory test finding 01/01/2017 Urine HCG NEGATIVE Negative 1, 2 (Qualitative) 1 11:30 12/27/16 97241,28185 2 FIRST MORNING SPECIMENS GENERALLY CONTAIN THE HIGHEST CONCENTRATION OF HCG AND ARE RECOMMENDED FOR EARLY DETECTION OF . Method: Quidel QuickVue One-Step Immunoassay Procedures Date CPT Code Description Status 07/04/2017 15627 Asp./Injection major joint Completed 06/05/2017 97674 Radiology, Shoulder: Two Views (Sso) Completed 04/03/2017 28108 Radiology, Shoulder: Two Views (Sso) Completed 01/01/2017 51672 Aromioplasty or Acromionectomy part w/wo coracoacromial Completed lig relea 01/01/2017 14752 Claviculectomy;partial open Completed Encounters Type Date Location Provider CPT E/M Dx Office Visit 11/26/2017 3:30[place] [address] R19.7 Office Visit 09/11/2017 9:30a Orthopaedic Office ADAM Ford 40443 S43.401D Office Visit 08/12/2017 1:00p Orthopaedic Office ADAM Ford 39316 S43.401D Office Visit 07/26/2017 10:30a Orthopaedic Office ADAM Ford 89223 S43.401D Office Visit 07/04/2017 2:15p Orthopaedic Office ADAM Ford 92938 S43.401D M75.51 Office Visit 06/13/2017 10:30a Orthopaedic Office ADAM Ford 06515 S43.401D M75.41 W01.0xxA Y99.0 Office Visit 06/05/2017 2:00p Orthopaedic Office Davin Woo M.D. 02459 M25.511 Office Visit 05/07/2017 3:30p Orthopaedic Office ADAM Ford 10346 M75.41 M75.41 M25.511 Office Visit 04/03/2017 1:00p Orthopaedic Office ADAM Ford 03644 S43.401A M25.511 Office Visit 12/12/2016 10:45a Orthopaedic Office Davin Woo M.D. 86749 S43.491A M25.511 Office Visit 11/07/2016 1:30p Orthopaedic Office ADAM Ford 70748 S43.491A Plan of Care 11/26/2017 - Moris Hoff, MDR19.7 Diarrhea, unspecifiedNew Medication: Citroma 1.745 GM/30MLDulcolax 5 mgGolytely 236 gmComments:diarrhea for two monthsNo travel no fever [place] [place] still pendingfather had colon cancer before 50plan - get labs colonoscopy
== END 2018-01-18 20:55 | disposition home or self-care (01) ==
LOC: UCCORT 19:45
DX: M94.0 Chondrocostal junction syndrome [Tietze] (principal); R07.89 Other chest pain
CPT/HCPCS: 71046; 93005; 96372; 99212; G0463; J1885; J7512

== ENCOUNTER 2018-03-17 14:57 | Emergency (ER) | payer SELFPAY ==
[2018-03-17 15:14] VITALS: BP 121/82
--- NOTE | 2018-03-17 15:20 | UC ---
Lower Extremity/Ankle HPI - HPI Summary HPI Summary: pain to top of L foot for about 2.5 days. no hx injury, fever or rash. on feet all day for work. - History of Current Complaint Chief Complaint: UCLowerExtremity Stated Complaint: LEFT FOOT PAIN Time Seen by Provider: 03/17/18 15:14 Hx Obtained From: Patient Hx Last Menstrual Period: depoprovera Pain Intensity: 8 Aggravating Factor(s): Ambulation Able to Bear Weight: Yes - Allergies/Home Medications Allergies/Adverse Reactions: Allergies Allergy/AdvReac Type Severity Reaction Status Date / Time egg Allergy Rash Verified 03/17/18 15:14 PMH/Surg Hx/FS Hx/Imm Hx Neurological History: Migraine Psychological History: Depression - Surgical History Surgical History: Yes Surgery Procedure, Year, and Place: 01/31/17 RIGHT SHOULDER - Family History Known Family History: Positive: None, Hypertension, Diabetes Negative: Cardiac Disease - Social History Occupation: Employed Full-time Alcohol Use: Occasionally Substance Use Type: None Smoking Status (MU): Never Smoked Tobacco - Immunization History Most Recent Influenza Vaccination: Not the Season Vaccination Up to Date: Yes Review of Systems Constitutional: Negative Skin: Negative Eyes: Negative ENT: Negative Respiratory: Negative Cardiovascular: Negative Gastrointestinal: Negative Genitourinary: Negative Motor: Negative Neurovascular: Negative Musculoskeletal: Other: - L foot pain Neurological: Negative Psychological: Negative Is Patient Immunocompromised?: No All Other Systems Reviewed And Are Negative: Yes Physical Exam Triage Information Reviewed: Yes Appearance: Well-Appearing Vital Signs: Initial Vital Signs Temp 98.8 F 03/17/18 15:07 Pulse 81 03/17/18 15:07 Resp 18 03/17/18 15:07 BP 121/82 03/17/18 15:07 Pulse Ox 100 03/17/18 15:07 Vital Signs Reviewed: Yes Eyes: Positive: Conjunctiva Clear ENT: Positive: Normal ENT inspection Neck: Positive: Supple, Nontender, No Lymphadenopathy Respiratory: Positive: Lungs clear, Normal breath sounds Cardiovascular: Positive: RRR, No Murmur Abdomen Description: Positive: Nontender, No Organomegaly, Soft Bowel Sounds: Positive: Present Musculoskeletal: Positive: Other: - LLE: hip, knee, achilles and ankle are atraumatic. L foot compared to R has no gross deformity, swelling or discoloration. Dorsal central foot is tender to palaption. Foot has full s/v/m function. Neurological: Positive: Alert Psychological: Positive: Age Appropriate Behavior Skin Exam: Normal Lower Extremity Course/Dx - Course Course Of Treatment: no fx or dislocation. no concern for infection. wiil tx with yunier and post op shoe, otc nsaid and orhto f/u. - Differential Dx/Diagnosis Provider Diagnoses: L foot strain Discharge - Sign-Out/Discharge Documenting (check all that apply): Patient Departure All imaging exams completed and their final reports reviewed: Yes - Discharge Plan Condition: Stable Disposition: HOME Patient Education Materials: Foot Sprain (ED) Referrals: Yodit Marie MD [Primary Care Provider] - 7 Days Additional Instructions: splint for comfort - Billing Disposition and Condition Condition: STABLE Disposition: Home
--- NOTE | 2018-03-17 16:05 | RAD ---
Indication: Left foot pain. 3 views of left foot demonstrates no fracture. No other bone or joint abnormality is noted. IMPRESSION: No fracture of left foot is noted.
== END 2018-03-17 16:11 | disposition home or self-care (01) ==
LOC: UCCORT 14:57
DX: S96.912A Strain of unspecified muscle and tendon at ankle and foot level, left foot, initial encounter (principal); Z91.012 Allergy to eggs; X50.9XXA Other and unspecified overexertion or strenuous movements or postures, initial encounter; Y92.9 Unspecified place or not applicable
CPT/HCPCS: 99213; G0463

== ENCOUNTER 2018-06-17 10:55 | Emergency (ER) | payer BC ==
[2018-06-17 12:02] VITALS: BP 137/81
--- NOTE | 2018-06-17 12:25 | UC ---
Throat Pain/Nasal Jeffrey HPI - HPI Summary HPI Summary: sore throat x 3 days no fever, + chills, mild cough , nasal congestion - History of Current Complaint Chief Complaint: UCGeneralIllness Stated Complaint: SORE THROAT Time Seen by Provider: 06/17/18 12:05 Hx Obtained From: Patient Hx Last Menstrual Period: unknown, depo ?: No Onset/Duration: Gradual Onset, Lasting Days - 3, Still Present Severity: Moderate Pain Intensity: 6 Cough: Nonproductive Associated Signs & Symptoms: Positive: Nasal Discharge. Negative: Dysphagia, FB Sensation, Drooling, Wheezing, Hoarseness, Sinus Discomfort, Fever, Vomiting , Rash - Allergies/Home Medications Allergies/Adverse Reactions: Allergies Allergy/AdvReac Type Severity Reaction Status Date / Time egg Allergy Rash Verified 06/17/18 12:00 Home Medications: Home Medications Acetaminophen/Diphenhydramine [Tylenol Pm Ex-Strength Caplet] 1 each PO BEDTIME 06/17/18 [History Confirmed 06/17/18] PMH/Surg Hx/FS Hx/Imm Hx Previously Healthy: Yes - Surgical History Surgical History: Yes Surgery Procedure, Year, and Place: 01/31/17 RIGHT SHOULDER - Family History Known Family History: Positive: None, Hypertension, Diabetes Negative: Cardiac Disease - Social History Alcohol Use: Rare Substance Use Type: None Smoking Status (MU): Never Smoked Tobacco - Immunization History Most Recent Influenza Vaccination: Not the Season Vaccination Up to Date: Yes Review of Systems All Other Systems Reviewed And Are Negative: Yes Constitutional: Positive: Negative Skin: Positive: Negative Eyes: Positive: Negative ENT: Positive: Sore Throat, Nasal Discharge Respiratory: Positive: Cough Cardiovascular: Positive: Negative Is Patient Immunocompromised?: No Physical Exam Triage Information Reviewed: Yes Appearance: Well-Appearing, No Pain Distress, Well-Nourished Vital Signs: Initial Vital Signs Temp 98.9 F 06/17/18 11:59 Pulse 80 06/17/18 11:59 Resp 16 06/17/18 11:59 BP 137/81 06/17/18 11:59 Pulse Ox 100 06/17/18 11:59 Vital Signs Reviewed: Yes Eye Exam: Normal Eyes: Positive: Conjunctiva Clear ENT: Positive: Normal ENT inspection, Hearing grossly normal, Pharynx normal, Nasal congestion, TMs normal. Negative: Pharyngeal erythema Neck exam: Normal Neck: Positive: Supple, Nontender, No Lymphadenopathy Respiratory: Positive: Chest non-tender, Lungs clear, Normal breath sounds Cardiovascular: Positive: RRR, No Murmur, Pulses Normal Abdominal Exam: Normal Abdomen Description: Positive: Nontender, Soft Bowel Sounds: Positive: Present Musculoskeletal Exam: Normal Neurological Exam: Normal Psychological Exam: Normal Throat Pain/Nasal Course/Dx - Differential Dx/Diagnosis Provider Diagnosis: Pharyngitis Discharge - Sign-Out/Discharge Documenting (check all that apply): Patient Departure All imaging exams completed and their final reports reviewed: No Studies - Discharge Plan Condition: Stable Disposition: HOME Patient Education Materials: Pharyngitis (ED) Referrals: No Primary Care Phys,NOPCP [Primary Care Provider] - If Needed Additional Instructions: negative rapid strep viral pharyngitis no need for antibiotics - Billing Disposition and Condition Condition: STABLE Disposition: Home
== END 2018-06-17 12:25 | disposition home or self-care (01) ==
LOC: UCCORT 10:55
DX: J02.9 Acute pharyngitis, unspecified (principal)
CPT/HCPCS: 87651; 99211; G0463

== ENCOUNTER 2018-09-26 15:12 | Emergency (ER) | payer BC ==
[2018-09-26 15:23] VITALS: BP 133/82
--- NOTE | 2018-09-26 15:32 | UC ---
Throat Pain/Nasal Jeffrey HPI - HPI Summary HPI Summary: sore throat x 1 day noted white spots on her throat, concern about strep no fever, no cough, no runny nose, no body aches - History of Current Complaint Chief Complaint: UCGeneralIllness Stated Complaint: SORE THROAT Time Seen by Provider: 09/26/18 15:27 Hx Obtained From: Patient Hx Last Menstrual Period: on Depo Provera ?: No Onset/Duration: Gradual Onset Severity: Moderate Pain Intensity: 5 Cough: None Associated Signs & Symptoms: Negative: Dysphagia, FB Sensation, Drooling, Wheezing, Hoarseness, Sinus Discomfort, Nasal Discharge, Fever, Vomiting, Rash - Allergies/Home Medications Allergies/Adverse Reactions: Allergies Allergy/AdvReac Type Severity Reaction Status Date / Time egg Allergy Rash Verified 09/26/18 15:23 Home Medications: Home Medications traZODone TAB* [Desyrel TAB*] 50 mg PO BEDTIME 09/26/18 [History Confirmed 09/26] PMH/Surg Hx/FS Hx/Imm Hx Previously Healthy: Yes - Surgical History Surgical History: Yes Surgery Procedure, Year, and Place: 01/31/17 RIGHT SHOULDER - Family History Known Family History: Positive: None, Hypertension, Diabetes Negative: Cardiac Disease - Social History Alcohol Use: Weekly Alcohol Amount: weekends Substance Use Type: None Smoking Status (MU): Never Smoked Tobacco - Immunization History Most Recent Influenza Vaccination: Not the Season Vaccination Up to Date: Yes Review of Systems All Other Systems Reviewed And Are Negative: Yes Constitutional: Positive: Negative Skin: Positive: Negative Eyes: Positive: Negative ENT: Positive: Sore Throat Respiratory: Positive: Negative Cardiovascular: Positive: Negative Gastrointestinal: Positive: Negative Is Patient Immunocompromised?: No Physical Exam Triage Information Reviewed: Yes Appearance: Well-Appearing, No Pain Distress, Well-Nourished Vital Signs: Initial Vital Signs Temp 98.4 F 09/26/18 15:21 Pulse 102 09/26/18 15:21 Resp 16 09/26/18 15:21 BP 133/82 09/26/18 15:21 Pulse Ox 98 09/26/18 15:21 Vital Signs Reviewed: Yes Eye Exam: Normal Eyes: Positive: Conjunctiva Clear ENT: Positive: Normal ENT inspection, Hearing grossly normal, Pharyngeal erythema, Tonsillar exudate Neck: Positive: Supple, Nontender, No Lymphadenopathy Respiratory: Positive: Chest non-tender, Lungs clear, Normal breath sounds Cardiovascular: Positive: No Murmur, Tachycardia Musculoskeletal Exam: Normal Skin Exam: Normal Throat Pain/Nasal Course/Dx - Differential Dx/Diagnosis Provider Diagnosis: Pharyngitis Discharge - Sign-Out/Discharge Documenting (check all that apply): Patient Departure All imaging exams completed and their final reports reviewed: No Studies - Discharge Plan Condition: Stable Disposition: HOME Patient Education Materials: Pharyngitis (ED) Referrals: Dolores Bailon MD [Primary Care Provider] - If Needed Additional Instructions: negative rapid strep viral pharyngitis follow up as needed - Billing Disposition and Condition Condition: STABLE Disposition: Home
== END 2018-09-26 15:48 | disposition home or self-care (01) ==
LOC: UCCORT 15:12
DX: J02.9 Acute pharyngitis, unspecified (principal); Z91.012 Allergy to eggs
CPT/HCPCS: 87651; 99211; G0463

== ENCOUNTER 2019-01-13 14:39 | Emergency (ER) | payer BC, OTHER ==
[2019-01-13 15:03] VITALS: BP 124/65
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
[2019-01-13] MEDS ORDERED: Ondansetron ODT TAB* 4 MG PO ONE (16:06)
[2019-01-13] MEDS ORDERED: Acetaminophen TAB* 325 MG PO ONE (16:06)
== END 2019-01-13 17:15 | disposition home or self-care (01) ==
LOC: UCCORT 14:39
DX: S06.0X1A Concussion with loss of consciousness of 30 minutes or less, initial encounter (principal); W22.09XA Striking against other stationary object, initial encounter; Y93.89 Activity, other specified; Y92.9 Unspecified place or not applicable; Y99.0 Civilian activity done for income or pay
CPT/HCPCS: 70450; 99212; A9270-GY; G0463

== ENCOUNTER 2019-04-27 10:35 | Emergency (ER) | payer BC, OTHER ==
--- NOTE | 2019-04-27 12:07 | UC ---
Lower Extremity/Ankle HPI - HPI Summary HPI Summary: Patient presents to urgent care for evaluation of pain in left ankle. Patient' s symptoms are related 3 AM she had a shower. Patient said if it was wet and she slipped and fell. Patient states she twisted her left knee and hip. Patient with pain in the left ankle since. Patient did not strike her head. No loss of consciousness. No other injuries. Patient took naproxen yesterday and Motrin today. Patient complains of pain a little aspect of her ankle. No open wounds. Patient without previous history of ankle injury. Patient states she is opening up. Medications reviewed this visit. - History of Current Complaint Chief Complaint: UCLowerExtremity Stated Complaint: LEFT ANKLE INJURY Time Seen by Provider: 04/27/19 12:01 Hx Obtained From: Patient Hx Last Menstrual Period: depo ?: No Onset/Duration: Lasting Days Severity Initially: Moderate Severity Currently: Moderate Pain Intensity: 6 - Allergies/Home Medications Allergies/Adverse Reactions: Allergies Allergy/AdvReac Type Severity Reaction Status Date / Time egg Allergy Rash Verified 04/27/19 12:01 Home Medications: Home Medications Budesonide/Formote 160/4.5(NF) [Symbicort 160/4.5 (NF)] 1 puff INH BID 04/27/19 [History Confirmed 04/27/19] PMH/Surg Hx/FS Hx/Imm Hx Previously Healthy: Yes - Surgical History Surgical History: Yes Surgery Procedure, Year, and Place: 01/31/17 RIGHT SHOULDER - Family History Known Family History: Positive: None, Hypertension, Diabetes Negative: Cardiac Disease - Social History Occupation: Employed Full-time Lives: With Family Alcohol Use: Occasionally Alcohol Amount: weekends Substance Use Type: None Smoking Status (MU): Never Smoked Tobacco - Immunization History Most Recent Influenza Vaccination: Not the 2014/2015 Season Vaccination Up to Date: Yes Review of Systems All Other Systems Reviewed And Are Negative: Yes Constitutional: Positive: Negative Skin: Positive: Negative Musculoskeletal: Positive: Other: - Left ankle Physical Exam - Summary Physical Exam Summary: Vital Signs Reviewed: Yes A+Ox3, no distress Eyes: Conjunctiva Clear ENT: Hearing grossly normal neck: supple Respiratory: Positive: No respiratory distress, No accessory muscle use Cardiovascular: skin color reflect adequate perfusion 2+ DP, PT CBT < 2 sec Musculoskeletal Exam: + SLE + flex/ext knee, externally rotation hip + flex.ext ankle with pain lateral aspect Pain with direct palp anterior/superior aspect of lateral malleolus Pain along dorsum of left foot. base 5th MT no ecchymosis. mild lateral ankle pain. Skin intact Neurological: Positive: Alert, ambulatory without difficulty - walking with limp + gross sensation Psychological: Positive: Normal Response To examiner Skin: Positive: no rash, no ecchymosis Triage Information Reviewed: Yes Vital Signs: Initial Vital Signs Temp 98.2 F 04/27/19 12:02 Pulse 81 04/27/19 12:02 Resp 18 04/27/19 12:02 BP 142/60 04/27/19 12:02 Pulse Ox 100 04/27/19 12:02 Diagnostics - Radiology No standard instances Radiology Interpretation Completed By: ED Physician - Patient Name: AIYANA ORANTES Medical Record#: [id number] Ordering Physician: Shana Marie MD Acct.#: [id number] : 1995 Age: 23 Sex: F Location: [facility] Exam Date: 04/27/191219 ADM Status: REG ER Order Information: ANKLE LEFT 3+VWS Accession Number: [id number] CPT : 83546 INDICATION: Left ankle injury. TECHNIQUE: 3 views of the left ankle were obtained. FINDINGS: The soft tissues are unremarkable. The bone mineralization is within normal limits. No fracture is identified. Anatomic alignment is maintained. The joint spaces are preserved. IMPRESSION: NO EVIDENCE FOR FRACTURE. <Electronically signed by Kong Gregorio MD in OV> 04/27/19 1240 Dictated By: Kong Gregorio MD Dictated Date /Time: 04/27/19 1239 Transcribed Date/Time: 04/27/19 123 Copy to: CC: Dolores Bailon MD; Shana Marie MD Imaging - [facility] Imaging - [facility] [address] ([phone] ph ([phone]) ph ([phone]) This report is only to be considered final once signed by the Provider(s) as displayed in the "<Electronically Signed by >" field (s). Absence of a signature indicates the report is in a draft status and still needs to be finalized. In the event this document was created by someone other than the signing Provider, the individual initiating the document will be listed in the "Entered by:" or "Dictated by:" bishop. 1 of 1 Patient Name : AIYANA ORANTES Medical Record# : [id number] Ordering Physician: Shana Marie MD Acct.#: [id number] : 1995 Age: 23 Sex: F Location: [facility] Exam Date: 1220 ADM Status: REG ER Order Information: ANKLE LEFT 3+ VWS Accession Number: [id number] CPT: 23503 INDICATION: Left ankle injury. TECHNIQUE: 3 views of the left ankle were obtained. FINDINGS: The soft tissues are unremarkable. The bone mineralization is within normal limits. No fracture is identified. Anatomic alignment is maintained. The joint spaces are preserved. IMPRESSION: NO EVIDENCE FOR FRACTURE. <Electronically signed by Kong Gregorio MD in OV> 04/27/19 1240 Dictated By: Kong Gregorio MD Dictated Date/Time: 04/27/19 1239 Transcribed Date/Time: 123 Copy to: CC:Dolores Bailon MD; Shana Marie MD Imaging - [facility] Imaging - [facility] [address] [address] ph ([phone]) ph ([phone]) ph ) This report is only to be considered final once signed by the Provider(s) as displayed in the "<Electronically Signed by >" field (s). Absence of a signature indicates the report is in a draft status and still needs to be finalized. In the event this document was created by someone other than the signing Provider, the individual initiating the document will be listed in the "Entered by:" or "Dictated by:" bishop. of Re-Evaluation - Re-Evaluation First Eval Change: Improved - reviewed imaging studies wayne/crutches ice elevate work note return precautions Lower Extremity Course/Dx - Course Course Of Treatment: Patient presents to urgent care for evaluation of pain in her left ankle that she sustained after she fell on the wet floor at the shower on Saturday. Patient with pain in the lateral aspect of her left ankle as well as along the base of the fourth and fifth metatarsals. On exam patient with mild edema left ankle. No crepitus. No open wounds. No deformity. Patient took Motrin discharged prior to my exam. We'll check imaging studies. Anticipate Wayne wrap , gel splint, crutches. Work note. Elevate. Follow with orthopedic. Patient comfortable the plan. We'll update patient after imaging studies are complete. Patient's blood pressure was noted bilirubin elevated. Likely related to today's visit. Recommend follow-up with PCP. - Differential Dx/Diagnosis Provider Diagnosis: Left ankle sprain Discharge ED - Sign-Out/Discharge Documenting (check all that apply): Patient Departure All imaging exams completed and their final reports reviewed: Yes - Discharge Plan Condition: Stable Disposition: HOME Patient Education Materials: Ankle Sprain (ED), Crutch Instructions (ED), Ankle Stirrup Splint (ED) Forms: *Work Release Referrals: Dolores Bailon MD [Primary Care Provider] - Jason Peterson MD [Medical Doctor] - Additional Instructions: -wear wayne wrap abnd splint for comfort and support -apply ice (20 min at a time) every 2-3 hours for the next 2 days -use crutches until you can walk normally without a limp -Elevate your leg - this will help with swelling and pain - Alternate ibuprofen (Advil, Motrin) 600mg and tylenol every 3 hours for pain. Take with food. Do NOT take for more than 4-5 days -Contact your doctor or the orthopedic provider to arrange a follow-up this week. Contact your doctor or return with questions or concerns - Billing Disposition and Condition Condition: STABLE Disposition: Home
[2019-04-27 12:09] VITALS: BP 142/60
== END 2019-04-27 13:10 | disposition home or self-care (01) ==
LOC: UCCORT 10:35
DX: S93.402A Sprain of unspecified ligament of left ankle, initial encounter (principal); Z91.012 Allergy to eggs; W18.2XXA Fall in (into) shower or empty bathtub, initial encounter; Y92.9 Unspecified place or not applicable
CPT/HCPCS: 99213; G0463

== ENCOUNTER 2019-06-08 13:22 | Emergency (ER) | payer SELFPAY ==
[2019-06-08 14:04] VITALS: BP 125/75
--- NOTE | 2019-06-08 14:15 | UC ---
Ear Complaint HPI - HPI Summary HPI Summary: Pt presents with c/o sudden onset of nasal congestion, and left ear pain. - History of Current Complaint Chief Complaint: UCGeneralIllness Stated Complaint: LEFT EAR Time Seen by Provider: 06/08/19 14:03 Hx Obtained From: Patient Hx Last Menstrual Period: Depo ?: No Onset/Duration: Sudden Onset, Lasting Days, Still Present Severity Initially: Mild Severity Currently: Mild Pain Intensity: 6 Associated Signs/Symptoms: Positive: Discharge, URI Symptoms - Allergies/Home Medications Allergies/Adverse Reactions: Allergies Allergy/AdvReac Type Severity Reaction Status Date / Time egg Allergy Rash Verified 06/08/19 14:05 PMH/Surg Hx/FS Hx/Imm Hx Previously Healthy: Yes - Surgical History Surgical History: Yes Surgery Procedure, Year, and Place: 01/31/17 RIGHT SHOULDER - Family History Known Family History: Positive: None, Hypertension, Diabetes Negative: Cardiac Disease - Social History Occupation: Employed Full-time Lives: With Family Alcohol Use: Occasionally Alcohol Amount: weekends Substance Use Type: None Smoking Status (MU): Never Smoked Tobacco Have You Smoked in the Last Year: No - Immunization History Most Recent Influenza Vaccination: Not the Season Vaccination Up to Date: Yes Review of Systems All Other Systems Reviewed And Are Negative: Yes Constitutional: Positive: Chills, Fatigue Skin: Positive: Negative Eyes: Positive: Negative ENT: Positive: Ear Ache, Nasal Discharge, Sinus Congestion, Other - PND Respiratory: Positive: Negative Cardiovascular: Positive: Negative Gastrointestinal: Positive: Negative Genitourinary: Positive: Negative Motor: Positive: Negative Neurovascular: Positive: Negative Musculoskeletal: Positive: Negative Neurological: Positive: Negative Psychological: Positive: Negative Is Patient Immunocompromised?: No Physical Exam Triage Information Reviewed: Yes Appearance: Ill-Appearing Vital Signs: Initial Vital Signs Temp 98.6 F 06/08/19 14:01 Pulse 83 06/08/19 14:01 Resp 16 06/08/19 14:01 BP 125/75 06/08/19 14:01 Pulse Ox 100 06/08/19 14:01 Vital Signs Reviewed: Yes Eye Exam: Normal ENT: Positive: Nasal congestion, TM bulging, Other - PND Dental Exam: Normal Neck exam: Normal Neck: Positive: No Lymphadenopathy Cardiovascular Exam: Normal Musculoskeletal Exam: Normal Neurological Exam: Normal Psychological Exam: Normal Skin Exam: Normal Ear Complaint Course/Dx - Differential Dx/Diagnosis Differential Diagnosis/HQI/PQRI: Otitis Media, Pharyngitis, URI Provider Diagnosis: Viral syndrome Discharge ED - Sign-Out/Discharge Documenting (check all that apply): Patient Departure All imaging exams completed and their final reports reviewed: No Studies - Discharge Plan Condition: Stable Disposition: HOME Prescriptions: Guaifenesin/Pseudoephedrne HCl [Mucinex D ER 600-60 mg Tablet] 1 each PO Q12H # 14 tab.er.12h Patient Education Materials: Earache (ED), Viral Syndrome (ED) Forms: *Work Release Referrals: Dolores Bailon MD [Primary Care Provider] - If Needed - Billing Disposition and Condition Condition: STABLE Disposition: Home
== END 2019-06-08 14:29 | disposition home or self-care (01) ==
LOC: UCCORT 13:22
DX: B34.9 Viral infection, unspecified (principal); R09.81 Nasal congestion; H92.02 Otalgia, left ear; R53.83 Other fatigue; J34.89 Other specified disorders of nose and nasal sinuses; Z91.012 Allergy to eggs
CPT/HCPCS: 99212; G0463